=== PATIENT | female | born 1980 | race Caucasian/White ===

== ENCOUNTER 2017-12-16 05:41 | Inpatient (IN) ==
[2017-12-16] MEDS ORDERED: Oxytocin 30 Units/500ml Premix 30 UNITS/500 ML BAG IV.SIG ONE ×2 (06:49→13:20)
[2017-12-16] MEDS ORDERED: Sod Chloride 0.9% Inj 1,000 ML IV.CONT PRN (06:49)
[2017-12-16] MEDS ORDERED: Penicillin G Potassium Inj 5,000,000 UNIT in Sodium Chloride 0.9% Inj 100 ML IV.SIG ONE (06:49)
[2017-12-16] MEDS ORDERED: Naloxone Inj 0.4 MG/ML Vial IV.PUSH PRN ×2 (06:49→13:35)
[2017-12-16] MEDS ORDERED: fentaNYL Citrate Inj 100 MCG/2 ML Ampul IV.PUSH PRN ×2 (06:49)
[2017-12-16] MEDS ORDERED: Sodium Chlor 0.9% Inj 500 ML IV.SIG PRN (06:49)
[2017-12-16] MEDS ORDERED: Citric Acid/Sodium Citrate Liq 30 ML UDC PO SCH (07:00)
--- NOTE | 2017-12-16 07:10 | P.HPOB ---
History of Present Illness Primary Care Physician: Checo Bishop M.D. Chief Complaint: Leaking of fluid from the vagina History of Present Illness: 37-year-old EDC 12/22/2017 EGA 39+ weeks presents complaining of spontaneous rupture of membranes since 10 PM on 12/15/2017 history of positive GBS. Previous desires . AMA. Carrier for SMA. History of MRSA. Patient reports that the was complicated by a marginal placenta previa resolved documented in chart also she states was diagnosed with preeclampsia but resolved of note she had transient elevated BP and thrombocytopenia both of which resolved. Weeks Gestation:: 39 Para: 3 : 7 - Inpatient Certification I certify that the inpatient services were ordered in accordance with Medicare regulations governing the order. This includes certification that hospital inpatient services are reasonable and necessary and in the case of services not specified as inpatient-only under 42 CFR 419.22(n), that they are appropriately provided as inpatient services in accordance to with the 2-midnight benchmark under 43 CFR 412.3(e) Estimated Total Length of Stay (Days): 3 Plans for Post Hospital Care: Home Review of Systems All other systems reviewed negative except as stated in HPI Genitourinary: Reports vaginal discharge PMFSH - History History Provided By: Patient - Medical History Medical History: Medical History (Last Updated 10/31/17 @ 16:39 by Celina Youssef MD, R1) Anxiety Migraine - Surgical History Surgical History: Surgical History (Last Updated 10/31/17 @ 14:01 by Jerica Vallejo RN) H/O: - Tobacco History Second Hand Smoke Exposure: No Smoking Status: Former smoker - Alcohol History How Often Do You Have a Drink Containing Alcohol: Never - Substance Use History Substance History: Past History - Travel History History of Recent Travel: No Medications and Allergies Allergies Allergy/AdvReac Type Severity Reaction Status Date / Time azithromycin Allergy Severe RASH,VOMITI Verified 12/13/17 04:44 NG Latex, Natural Rubber Allergy Swelling Verified 12/13/17 04:44 Home Medications Medication Instructions Recorded Confirmed Type acetaminophen [Tylenol] 650 mg PO PRN 12/02/17 12/16/17 History [id number] fumarate-FA 1 tab PO DAILY 12/16/17 12/16/17 History [] ferrous sulfate [Iron (ferrous 325 mg PO DAILY 12/16/17 12/16/17 History sulfate)] Exam Vital signs: Vital Signs 12/16/17 06:01 Temperature 97.7 F Pulse Rate 86 Respiratory Rate 14 Blood Pressure 121/73 Intake & Output 12/15/17 12/15/17 12/16/17 06:59 18:59 06:59 Weight 72.575 kg - Constitutional no acute distress - Routine HEENT Exam Head: Present: normocephalic Eye: Present: PERRL ENT: Present: mucous membranes moist - Routine Neck Exam Present: supple - Routine Respiratory Exam Present: CTA bilaterally - Routine Cardiovascular Exam Present: RRR - Routine Exam Comments: Vaginal exam 3-4 cm 70% effaced -2 station cervix is mid position soft Results - Labs Group B Strep: Positive (Documented in chart) Caprini VTE Risk Assessment Caprini VTE Risk Assessment: No/Low Risk (score <= 1) (Patient ambulating without difficulty) Caprini Risk Assessment Model: Point Value = 1 Point Value = 2 Point Value = 3 Point Value = 5 Age 41-60 Minor surgery BMI > 25 kg/m2 Swollen legs Varicose veins or History of unexplained or recurrent spontaneous Oral contraceptives or hormone replacement Sepsis (< 1 month) Serious lung disease, including pneumonia (< 1 month) Abnormal pulmonary function Acute myocardial infarction Congestive heart failure (< 1 month) History of inflammatory bowel disease Medical patient at bed rest Age 61-74 Arthroscopic surgery Major open surgery (> 45 min) Laparoscopic surgery (> 45 min) Malignancy Confined to bed (> 72 hours) Immobilizing plaster cast Central venous access Age >= 75 History of VTE Family history of VTE Factor V Leiden Prothrombin [id number] Lupus anticoagulant Anticardiolipin antibodies Elevated serum homocysteine Heparin-induced thrombocytopenia Other congenital or acquired thrombophilia Stroke (< 1 month) Elective arthroplasty Hip, pelvis, or leg fracture Acute spinal cord injury (< 1 month) Prophylaxis Regimen: Total Risk Factor Score Risk Level Prophylaxis Regimen 0-1 Low Early ambulation 2 Moderate Order ONE of the following: *Sequential Compression Device (SCD) *Heparin 5000 units SQ BID 3-4 Higher Order ONE of the following medications: *Heparin 5000 units SQ TID *Enoxaparin/Lovenox 40 mg SQ daily (WT < 150 kg, CrCl > 30 mL/min) *Enoxaparin/Lovenox 30 mg SQ daily (WT < 150 kg, CrCl > 10-29 mL/min) *Enoxaparin/Lovenox 30 mg SQ BID (WT < 150 kg, CrCl > 30 mL/min) AND/OR *Sequential Compression Device (SCD) 5 or more Highest Order ONE of the following medications: *Heparin 5000 units SQ TID (Preferred with Epidurals) *Enoxaparin/Lovenox 40 mg SQ daily (WT < 150 kg, CrCl > 30 mL/min) *Enoxaparin/Lovenox 30 mg SQ daily (WT < 150 kg, CrCl > 10-29 mL/min) *Enoxaparin/Lovenox 30 mg SQ BID (WT < 150 kg, CrCl > 30 mL/min) AND *Sequential Compression Device (SCD) Assessment and Plan - Diagnosis (1) 39 weeks gestation of Code(s): Z3A.39 - 39 weeks gestation of Status: Acute (2) Positive GBS test Code(s): B95.1 - Streptococcus, group B, as the cause of diseases classified elsewhere Status: Acute (3) Previous section complicating Code(s): O34.219 - Maternal care for unspecified type scar from previous delivery Status: Acute (4) Desires (vaginal after ) trial Code(s): O34.219 - Maternal care for unspecified type scar from previous delivery Status: Acute (5) AMA (advanced maternal age) multigravida 35+ Code(s): O09.529 - Supervision of elderly multigravida, unspecified trimester Status: Acute - Plan Patient desires a /trial of labor status post . She was counseled on alternatives benefits and complications including but not limited to low tolerance for labor. With the uterine dehiscence or rupture risk of maternal and/or . Increased morbidity and/or mortality with complicated . On examination patient's pelvis is noted to be adequate. Patient expressed verbal understanding of all stated above as well as complications and risks associated partner present as well as RN during counseling. Prophylaxis for group B strep, of note prolonged rupture of membranes with rupture since 10 PM last night. Plan n.p.o.
[2017-12-16 07:18] LABS: Baso % (Auto) 0.2 % (0.0-2.0); Eos # (Auto) 0.1 th/mm3 (0.0-0.4); Hematocrit 35.4 % (35.0-46.0); Hemoglobin 12.3 gm/dL (11.6-15.3); Lymph # (Auto) 1.5 th/mm3 (1.0-4.8); Lymph % (Auto) 18.3 % (9.0-44.0); Mean Corpuscular HGB Conc 34.8 % (32.0-36.0); Mean Corpuscular Hemoglobin 32.1 pg (27.0-34.0); Mean Corpuscular Volume 92.1 fL (80.0-100.0); Mean Platelet Volume 9.6 fL (7.0-11.0); Mono # (Auto) 0.6 th/mm3 (0.0-0.9); Mono % (Auto) 6.6 % (0.0-8.0); Neut # (Auto) 6.2 th/mm3 (1.8-7.7); Neut % (Auto) 73.9 % (16.0-70.0); Platelet Count 113 th/mm3 (150-450); Red Blood Count 3.84 mil/mm3 (4.00-5.30); Red Cell Distribution Width 13.9 % (11.6-17.2); White Blood Count 8.4 th/mm3 (4.0-11.0)
[2017-12-16 07:29] LABS: Amphetamine Urine With Conf Neg (Neg); Benzodiazepine Urine With Conf Neg (Neg)
[2017-12-16 07:42] LABS: Bilirubin,Urine Negative (Negative); Clarity,Urine Hazy (Clear); Color,Urine Straw (Yellw/Straw); Glucose,Urine (UA) Negative (Negative); Leukocyte Esterase,Urine Trace (Negative); Nitrite,Urine Negative (Negative); Specific Gravity,Urine 1.002 (1.002-1.035); Squamous Epithelial Cell,Urine <1 /hpf (0-5)
[2017-12-16] MEDS ORDERED: fentaNYL 2MCG-Bupiv 0.125% Epi 150 ML EPIDURAL ONE (10:07)
[2017-12-16] MEDS ORDERED: Lidocaine PF 1% Inj 5 ML Vial ONE (10:08)
[2017-12-16] MEDS ORDERED: Lidocaaine 1.5%/Epinephrine 1:200,000 PF Inj 5 ML Amp ONE (10:08)
[2017-12-16] MEDS ORDERED: Penicillin G Potassium Inj 2,500,000 UNIT in Sodium Chlor 0.9% Inj 100 ML IV.SIG SCH (11:00)
--- NOTE | 2017-12-16 11:51 | P.OBDELI ---
Weeks Gestation: 39 Patient Started Active Labor: Yes Active Labor Start Date: 12/16/17 Medical Induction of Labor: No Artificial Rupture of Membrane: No Anesthesia: Epidural Episiotomy: none Vaginal Delivery: Normal Presentation: Occiput anterior Nuchal Cord: x1 Delayed Cord Clamping (45 sec): Yes Placenta: Spontaneous delivery Estimated blood loss (mL): 200 : Male Male A Infant Delivery Date: 12/16/17 Infant Delivery Time: 11:33 Weight: 3.37 kg score (1 min): 8 score (5 min): 9 Additional Information: Delivered by Dr.La Lora. Supervised by Dr. Edgar.
[2017-12-16] MEDS ORDERED: fentaNYL 2MCG-Bupiv 0.125% Epi 150 ML EPIDURAL PRN (12:00)
[2017-12-16] MEDS ORDERED: fentaNYL Citrate Inj 100 MCG/2 ML Ampul EPIDURAL ONE (12:00)
[2017-12-16] MEDS ORDERED: Methylergonovine Inj 0.2 MG/ML Ampul ONE (12:10)
[2017-12-16] MEDS ORDERED: Methylergonovine Inj 0.2 MG/ML Ampul IM ONE (12:15)
[2017-12-16] MEDS ORDERED: Oxytocin 30 Units/500ml Premix 30 UNITS/500 ML BAG IV.CONT PRN (13:35)
[2017-12-16] MEDS ORDERED: Bisacodyl 10 MG Supp RECTAL PRN (13:35)
[2017-12-16] MEDS ORDERED: Benzocaine 20% Top Spray 60 ML Can TOPICAL PRN (13:35)
[2017-12-16] MEDS ORDERED: Witch Hazel 50%/Glyderin 12.5% 40 Pad Jar RECTAL PRN (13:35)
[2017-12-16] MEDS ORDERED: Acetaminophen 325 MG Tablet PO PRN (13:35)
[2017-12-16] MEDS ORDERED: Diphtheria/Tetanus/Pertussis Vaccine Inj 0.5 ML Syringe IM ONE (16:00)
[2017-12-16] MEDS ORDERED: Measles/Mumps/Rubella Vaccine Inj 0.5 ML Vial SQ ONE (16:00)
[2017-12-16] MEDS ORDERED: Zolpidem Tartrate 5 MG Tablet PO PRN (21:00)
[2017-12-16] MEDS: Senna/Docusate Sodium 8.6/50 MG Tablet PO SCH (22:56)
[2017-12-17] MEDS: Senna/Docusate Sodium 8.6/50 MG Tablet PO SCH ×2 (09:43→21:22)
--- NOTE | 2017-12-17 11:42 | P.PNOB ---
Subjective Post day: 1 Interval history: Patient is a 37-year-old delivered at 39 weeks and 1 day. Patient is day 1 after NVD. Patient's pain is well-controlled. Patient reports minimal bleeding. Patient reports eating and drinking without any nausea or vomiting. Patient has passed gas but has not had a bowel movement. Patient denies chest pain and shortness of breath. Patient has been ambulating; she denies lower extremity pain. Patient reports desire for contraception, which she will discuss with her PCP at her first follow-up visit. Objective Vital Signs/I&O: Vital Signs 12/16/17 11:45 12/16/17 12:01 12/16/17 12:02 Temperature Pulse Rate 117 H Respiratory Rate 18 Blood Pressure 133/79 12/16/17 12:16 12/16/17 12:30 12/16/17 12:57 Temperature 98.5 F Pulse Rate 96 H 89 Respiratory Rate 18 Blood Pressure 122/90 114/80 12/16/17 13:10 12/16/17 13:56 12/16/17 16:15 Temperature 98.0 F Pulse Rate Respiratory Rate 18 18 20 Blood Pressure 12/16/17 16:56 12/16/17 20:15 12/17/17 09:52 Temperature 98.2 F 98.0 F Pulse Rate 76 72 65 Respiratory Rate 18 18 Blood Pressure 120/65 126/77 120/69 Result Diagrams: 12/16/17 06:50 Objective Remarks: GENERAL: Well-nourished, well-developed patient. CARDIOVASCULAR: Regular rate and rhythm without murmurs, gallops, or rubs. RESPIRATORY: Breath sounds equal bilaterally. No accessory muscle use. ABDOMEN/GI: Abdomen soft, non-tender. Fundus: Firm, minimally tender at umbilicus. GENITOURINARY: Light to moderate bleeding. EXTREMITIES: No cyanosis or edema, non-tender, without signs of DVT. Medications and IVs: Active Medications Acetaminophen (Tylenol) 650 mg PO Q4H PRN PRN Reason: PAIN SCALE 1 TO 2 Last Admin: 12/17/17 00:24 Dose: 650 mg Al Hydroxide/Mg Hydroxide (Milk Of Magnesia Liq) 30 ml PO Q12H PRN PRN Reason: Mild Constipation Benzocaine (Americaine 20% Top [place]) 1 spray TOPICAL Q4H PRN PRN Reason: For Perineum Discomfort Bisacodyl (Dulcolax Supp) 10 mg RECTAL DAILY PRN PRN Reason: SEVERE CONSITIPATION Ephedrine Sulfate (Ephedrine/Ns Syringe) 10 mg IV.PUSH UNSCH PRN PRN Reason: SEE LABEL COMMENTS Stop: 12/17/17 11:43 Fentanyl/Bupivacaine/Sodium Chlor (Fentanyl 2 Mcg-Bupiv 0.125% Epi) 150 mls @ 10 mls/hr EPIDURAL UNSCH PRN PRN Reason: for Labor Pain Oxytocin (Pitocin 30 Units/Ns 500 Ml Premix) 30 units in 500 mls @ 100 mls/hr IV.CONT UNSCH PRN PRN Reason: Heavy bleeding Ibuprofen (Motrin) 800 mg PO Q8H PRN PRN Reason: For Cramping Last Admin: 12/17/17 09:42 Dose: 800 mg Lactulose (Lactulose Liq) 30 ml PO DAILY PRN PRN Reason: SEVERE CONSITIPATION Miscellaneous Information (Misc Information) 1 each OTHER UNSCH PRN PRN Reason: SEE LABEL COMMENTS Stop: 12/17/17 11:43 Miscellaneous Information (Misc Information) 1 each OTHER UNSCH PRN PRN Reason: SEE LABEL COMMENTS Stop: 12/17/17 11:43 Naloxone HCl (Narcan Inj) 0.1 mg IV.PUSH Q2M PRN PRN Reason: for opiate reversal Ondansetron HCl (Zofran Odt) 4 mg PO Q6H PRN PRN Reason: NAUSEA OR VOMITING Last Admin: 12/16/17 14:31 Dose: 4 mg Oxycodone/Acetaminophen (Percocet 5/325 Mg) 1 tab PO Q4H PRN PRN Reason: PAIN SCALE 3 TO 5 Last Admin: 12/17/17 09:43 Dose: 1 tab Oxycodone/Acetaminophen (Percocet 5/325 Mg) 2 tab PO Q4H PRN PRN Reason: PAIN SCALE 6 TO 10 Senna/Docusate Sodium (Ana Cristina-Colace) 1 tab PO BID REPLACED BY [facility] Last Admin: 12/17/17 09:43 Dose: 1 tab Sennosides (Senokot) 17.2 mg PO Q12H PRN PRN Reason: Moderate Constipation Sodium Chloride (Ns Flush) 2 ml IV.FLUSH BID REPLACED BY [facility] Last Admin: 12/17/17 09:44 Dose: 2 ml Sodium Chloride (Ns Flush) 2 ml IV.FLUSH PRN PRN PRN Reason: FLUSH AFTER USING IV ACCESS Witch Giuliana/Glycerin (Tucks Pads) 1 applicatio RECTAL QID PRN PRN Reason: HEMORRHOIDS Zolpidem Tartrate (Ambien) 5 mg PO HS PRN PRN Reason: SLEEP Assessment and Plan - Diagnosis (1) Vaginal delivery Code(s): O80 - Encounter for full-term uncomplicated delivery Status: Acute (2) 39 weeks gestation of Code(s): Z3A.39 - 39 weeks gestation of Status: Resolved - Plan Patient is a 37-year-old delivered at 39 weeks and 1 day. Patient is day 1 after NVD. Continue routine care. Motrin and Percocet when necessary for pain. Encourage OOB. Pelvic rest for 6 weeks will need follow-up appointment at that time. Contraception: Patient will discuss with OB provider. Anticipate discharge tomorrow. [facility] OB hospitalist
[2017-12-18 08:06] VITALS: BP 129/81; PULSE 69; RESP 20
[2017-12-18 08:07] VITALS: TEMP 98.2
--- NOTE | 2017-12-18 09:08 | P.PNOB ---
Subjective Interval history: Patient is a 37 year-old delivered at 39 weeks and 1 days. Patient is day 2 after . Patient's pain is well-controlled. Patient reports eating and drinking without any nausea or vomiting. Patient reports minimal bleeding. Patient has passed gas but no bowel movements. Patient is walking without lower extremity pain or shortness of breath. Patient reports desire for contraception which she will talk to her OB provider during her visit in 6 weeks. She is breast-feeding and ready to be discharged today. Objective Vital Signs/I&O: Vital Signs 12/17/17 09:52 12/17/17 20:00 12/18/17 08:00 Temperature 98.0 F 98.1 F 98.2 F Pulse Rate 65 68 69 Respiratory Rate Blood Pressure 120/69 122/70 129/81 Result Diagrams: 12/16/17 06:50 Objective Remarks: GENERAL: Well-nourished, well-developed patient. CARDIOVASCULAR: Regular rate and rhythm without murmurs, gallops, or rubs. RESPIRATORY: Breath sounds equal bilaterally. No accessory muscle use. ABDOMEN/GI: Abdomen soft, non-tender. Fundus: Firm, non-tender below the umbilicus. GENITOURINARY: Light to moderate bleeding. EXTREMITIES: No cyanosis or edema, non-tender, without signs of DVT. Medications and IVs: Active Medications Acetaminophen (Tylenol) 650 mg PO Q4H PRN PRN Reason: PAIN SCALE 1 TO 2 Last Admin: 12/17/17 00:24 Dose: 650 mg Al Hydroxide/Mg Hydroxide (Milk Of Magnesia Liq) 30 ml PO Q12H PRN PRN Reason: Mild Constipation Benzocaine (Americaine 20% Top [place]) 1 spray TOPICAL Q4H PRN PRN Reason: For Perineum Discomfort Bisacodyl (Dulcolax Supp) 10 mg RECTAL DAILY PRN PRN Reason: SEVERE CONSITIPATION Fentanyl/Bupivacaine/Sodium Chlor (Fentanyl 2 Mcg-Bupiv 0.125% Epi) 150 mls @ 10 mls/hr EPIDURAL UNSCH PRN PRN Reason: for Labor Pain Oxytocin (Pitocin 30 Units/Ns 500 Ml Premix) 30 units in 500 mls @ 100 mls/hr IV.CONT UNSCH PRN PRN Reason: Heavy bleeding Ibuprofen (Motrin) 800 mg PO Q8H PRN PRN Reason: For Cramping Last Admin: 12/18/17 04:22 Dose: 800 mg Lactulose (Lactulose Liq) 30 ml PO DAILY PRN PRN Reason: SEVERE CONSITIPATION Naloxone HCl (Narcan Inj) 0.1 mg IV.PUSH Q2M PRN PRN Reason: for opiate reversal Ondansetron HCl (Zofran Odt) 4 mg PO Q6H PRN PRN Reason: NAUSEA OR VOMITING Last Admin: 12/16/17 14:31 Dose: 4 mg Oxycodone/Acetaminophen (Percocet 5/325 Mg) 1 tab PO Q4H PRN PRN Reason: PAIN SCALE 3 TO 5 Last Admin: 12/18/17 04:23 Dose: 1 tab Oxycodone/Acetaminophen (Percocet 5/325 Mg) 2 tab PO Q4H PRN PRN Reason: PAIN SCALE 6 TO 10 Last Admin: 12/17/17 17:56 Dose: 2 tab Senna/Docusate Sodium (Ana Cristina-Colace) 1 tab PO BID [facility] Last Admin: 12/17/17 21:22 Dose: 1 tab Sennosides (Senokot) 17.2 mg PO Q12H PRN PRN Reason: Moderate Constipation Sodium Chloride (Ns Flush) 2 ml IV.FLUSH BID [facility] Last Admin: 12/17/17 09:44 Dose: 2 ml Sodium Chloride (Ns Flush) 2 ml IV.FLUSH PRN PRN PRN Reason: FLUSH AFTER USING IV ACCESS Witch Giuliana/Glycerin (Tucks Pads) 1 applicatio RECTAL QID PRN PRN Reason: HEMORRHOIDS Zolpidem Tartrate (Ambien) 5 mg PO HS PRN PRN Reason: SLEEP Assessment and Plan - Diagnosis (1) Vaginal delivery Code(s): O80 - Encounter for full-term uncomplicated delivery Status: Resolved (2) 39 weeks gestation of Code(s): Z3A.39 - 39 weeks gestation of Status: Resolved - Plan Patient is a 37-year-old delivered at 39 weeks and 1 day. Patient is day 2 after NVD. Continue routine care. Motrin and Percocet when necessary for pain. Encourage OOB. Pelvic rest for 6 weeks will need follow-up appointment at that time. Contraception: Patient will discuss with OB provider. Anticipate discharge today. Circumcision: Will discuss with OB hospitalist. [facility] OB hospitalist
[2017-12-18] MEDS: Senna/Docusate Sodium 8.6/50 MG Tablet PO SCH (13:25)
== END 2017-12-18 16:00 | disposition home or self-care (01) ==
LOC: HOBED 05:41 → H2E 06:09 → H1EA 06:30
PROVIDERS: ADMIT Obstetrics & Gynecology; ATTEND Obstetrics & Gynecology